=== PATIENT | female | born 1960 | race Asian ===

== ENCOUNTER → 2020-12-08 | Outpatient (CLI) | payer OTHER ==
[~2020-12-08] MED LIST: vitamin b-12; vitamin c
== END ==
LOC: LAB 10:00
PROVIDERS: ATTEND Nurse Anesthetist, Certified Registered
DX: Z01.812 Encounter for preprocedural laboratory examination (principal); K92.1 Melena; Z20.828 Contact with and (suspected) exposure to other viral communicable diseases; Z86.010 Personal history of colon polyps
CPT/HCPCS: U0003

== ENCOUNTER → 2020-12-12 | Day surgery (SDC) | payer OTHER ==
[~2020-12-12] MED LIST changes: +GLYCOPYRROLATE 1 MG/5 ML VIAL. ONE; +IPRATRPIUM/ALBUTEROL 0.5/2.5MG 3 ML NEBU. NEB PRN; +IV RINGERS SOLUTION,LACTATED 1,000 ML IV SCH; +LIDOCAINE 2% PF 5 ML VIAL. ONE; +MIDAZOLAM HCL PF 2 MG/2 ML VIAL. IV ONE; +ONDANSETRON PF 4 MG/2 ML VIAL. IV PRN; +PROPOFOL 10,000 MCG/ML (20ML) VIAL IV ONE
[2020-12-12 11:44] VITALS: BP 109/67
--- NOTE | 2020-12-18 14:09 | PATHOLOGY ---
[facility] Accession Number: [id number] . 01 Material submitted: . sigmoid colon - SIGMOID POLYP . 01 Clinical history: . HX POLYPS . 02 Diagnosis: Colon biopsy, sigmoid colon polyp: - Tubular adenoma. (JPM:[facility]; 12/18/2020) S 12/18/2020 1145 Local . 02 Comment: There is no high-grade dysplasia or evidence of malignancy. (JPM:[facility]; 12/18/2020) . 02 Electronically signed: . Sy Dozier MD, Pathologist NPI- [id number] . 01 Gross description: . Received in formalin labeled "Maryuri Alberto, sigmoid polyp" is a fragment of mckeon-brown soft tissue measuring 0.5 x 0.3 x 0.2 cm. The specimen is submitted entirely in A1. ([facility]; 12/15/2020) GZA/GZA 12/15/2020 1111 Local . 02 Pathologist provided ICD-10: D12.5 . 02 CPT . 939484 Specimen Comment: A courtesy copy of this report has been sent to [phone] Specimen Comment: Report sent to Specimen Comment: A duplicate report has been generated due to demographic updates. Performed at: 01 [facility] [address], [place], [place] [id number] MD Yoandy Garcia MD Phone: [phone] Performed at: 02 [facility] [address], [place] [id number] MD Sy Dozier MD Phone: [phone]
== END | disposition home or self-care (01) ==
LOC: SURG 09:03
PROVIDERS: ATTEND Emergency Medicine
DX: K92.1 Melena (principal); K64.8 Other hemorrhoids; D12.5 Benign neoplasm of sigmoid colon; Z88.0 Allergy status to penicillin; Z88.6 Allergy status to analgesic agent; Z86.010 Personal history of colon polyps; Z79.899 Other long term (current) drug therapy
CPT/HCPCS: 45380; J2001; J2704; J3490; J7120; 88305